=== PATIENT | male | born 1955 | race Asian ===

== ENCOUNTER → 2016-11-26 | Outpatient (CLI) | payer BC ==
[~2016-11-26] MED LIST: DILA100C PO; FLUT50SP EACH NARE; HYDR-3535 PO; LATA0.002 EACH EYE; METO25TA3 PO
== END ==
LOC: CPRE 11:43
PROVIDERS: ATTEND Neurological Surgery
DX: M12.88 Other specific arthropathies, not elsewhere classified, other specified site (principal); M51.16 Intervertebral disc disorders with radiculopathy, lumbar region; M51.36 Other intervertebral disc degeneration, lumbar region

== ENCOUNTER → 2016-12-01 | Day surgery (SDC) | payer BC ==
--- NOTE | 2016-11-30 11:09 | MH ---
cc: DALILA COTA M.D., ROHIT K. M.D. OSSI, RAID G. MD DATE OF ADMISSION: 12/01/2016 ADMISSION DIAGNOSIS Herniated nucleus pulposus lumbar spine. HISTORY OF PRESENT ILLNESS This is a 61-year-old male who presented to us for an evaluation of low back pain which has been ongoing for the past two years. He has been experiencing muscle spasms in his buttocks to the calf after walking only a short distance. His pain is in the left leg mainly and at times he also experiences numbness in the dorsal aspect of the left big toe. He either sits or bends down for relief of the pain. He has had a nerve conduction study done with Dr. Capps on 08/04/2016 consistent with a left L5 and possibly right S1 radiculopathy. He relates that whenever he leans forward on a grocery cart his pain improves but otherwise he cannot walk more than 100 feet. He has undergone chiropractic treatment for the past year along with spinal stabilization and muscle strengthening exercises which he performs on a regular basis. He also has been taking pain and nerve medications but none of these medications are helping with his symptoms. 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 PAST MEDICAL HISTORY: Significant for - 1. Hypertension. 2. Glaucoma. PAST SURGICAL HISTORY: Significant for - 1. Cataract surgery in July 2014. 2. Left eye retinal surgery in 2013 also. CURRENT MEDICATIONS 1. Metoprolol 25 mg daily. 2. Latanoprost 0.005% daily. ALLERGIES TO MEDICATIONS He has no known drug allergies. FAMILY HISTORY He has a sister who is alive at 83 and a brother who is alive at 72. SOCIAL HISTORY He is self-employed. He is . He does not have children. He does not smoke and has not smoked in the past. He does not drink alcohol. REVIEW OF SYSTEMS Constitutional: He denies any fever or chills. Ears, nose and throat: No pharyngitis, exudates or bloody drainage from his nose. Cardiovascular: Denies any chest pain or palpitations. Respiratory: No cough or shortness of breath. Genitourinary: No dysuria or hematuria. Musculoskeletal: Positive for low back pain. Skin: No rashes or pruritus. Neurologic: No difficulty with speech or memory. Gastrointestinal: No nausea or vomiting or abdominal pain. Psychiatric: No anxiety or depression symptoms. Endocrine: No polyuria or polydipsia. Hematologic: No bruising or bleeding tendencies. PHYSICAL EXAMINATION HEAD: Normocephalic, atraumatic. NECK: Supple. No carotid bruits heard on auscultation. LUNGS: Clear to auscultation bilaterally. HEART: Normal sinus rhythm; no murmurs. ABDOMEN: Soft, nontender. Positive bowel sounds. SKIN: No cyanosis or erythema. MUSCULOSKELETAL: He has 5/5 strength in the lower extremities, normal state of balance as well as gait. NEUROLOGIC: He is awake, alert and oriented. Cranial nerves II through XII appear grossly intact. His speech is fluent and comprehension is good. Sensation is intact in the lower extremities. Reflexes in the lower extremities are 2+. DATA REVIEWED Reviewed an MRI of the lumbar spine from September 03, 2016, which reveals significant central L4/L5 disc herniation along with facet arthropathy with moderate to severe spinal stenosis. There is also moderate degenerative disk disease with disk height collapse and endplate changes. There is a lesser degree of degenerative changes at other levels. IMPRESSION 61-year-old male with a chronic history of low back pain, more significant general claudication symptoms affecting mainly the left side. He has undergone chiropractic treatments which also included physical therapy without much relief in the past year. He has a large L4/L5 central disk herniation with associated spinal stenosis along with degenerative disk disease. PLAN We have discussed the treatment options with the patient which include continued conservative treatment measures with pain management versus a L4/L5 microdiskectomy. We have discussed the procedure as well as the risks, benefits, alternatives and recovery time in great detail with the patient. We have discussed the procedure using spine models in the office. We have discussed the risks along with surgery including but not limited to bleeding, infection, muscle weakness, voice hoarseness, disk re-herniation among others. The patient states that he understands the procedure as well as the risks involved and is requesting that we proceed and he was therefore scheduled accordingly. Dictated by: Juni Christensen PA-C MD GUILLERMO Bourgeois/VIPUL /10:25 AM /10:55 AM
[~2016-12-01] VITALS: Ht 170.2 cm; Wt 76.6 kg
[~2016-12-01] MED LIST changes: +ACETAMINOPHEN 1000 MG/100 ML VIAL IV ONE; +BUPIVACAINE/EPINEPHRINE 0.25% 50 ML VIAL INFIL ONE; +DEXAMETHASONE SOD PHOS 4 MG/ML VIAL ONE; -DILA100C PO; +DO NOT ADM ANY ANTICOAGULANT DRUGS XX PRN; +FAMOTIDINE 20 MG/2 ML VIAL ONE; +GELFOAM SIZE 100 ONE; +INSULIN HUMAN REGULAR 1,000 UNITS/10 ML VIAL SQ PRN; +LACTATED RINGER'S 1000 ML INJ 1,000 ML IV ONE; +LACTATED RINGER'S 1000 ML IV SCH; +METOPROLOL TARTRATE 25 MG TAB PO PRN; +MIDAZOLAM HCL 2 MG/2 ML VIAL ONE; +ONDANSETRON HCL 4 MG/2 ML VIAL IV PUSH ONE; +PROPOFOL 200 MG/20 ML AMP IV ONE; +SODIUM CHLOR 0.9% 1000 ML INJ 1,000 ML IV SCH; +SODIUM CHLORID 0.9% 500 ML IV SCH; +THROMBIN (TOPICAL) 5,000 UNIT VIAL ONE; +VANCOMYCIN HCL 1000 MG ON-CALL/NS 250 ML IV SCH; +VANCOMYCIN HCL 1000 MG VIAL ONE; +ePHEDrine/NS 50 MG/5 ML SYR IV ONE; +fentaNYL CITRATE 250 MCG/5 ML AMP ONE; +methylPREDNISolone ACETATE 40 MG/ML VIAL ONE
[2016-12-01 07:37] VITALS: BP 140/88; PULSE 65; RESP 16; TEMP 98.1; O2SAT 99
--- NOTE | 2016-12-01 12:24 | PD.OP ---
MD Mary Haddad MD Operative Report Date of Surgery: Dec 01, 2016 Preoperative Diagnosis: Low back pain with neurogenic claudication; severe L4-5 spinal stenosis from a central disc herniation and facet/ligamentum flavum hypertrophy Postoperative Diagnosis: Same Procedure: Lumbar L4-5 decompressive laminotomy with medial facetectomy and microdiscectomy Anesthesia: Gen. endotracheal by Onel Velasco Surgeon: Christiano Michaels M.D. Virtual Office Assistant(s): Anais Garcia Operation and Findings: Following administration of general endotracheal anesthesia, patient received vancomycin 1 g intravenously. Sequential compression devices were placed for DVT prophylaxis. He was then turned in prone position on Chai frame and the Kyrie table and all pressure points adequately padded. The lumbar region was then shaved and prepped with a Betadine and ChloraPrep. Sterile draping undertaken with Ioban. Midline incision overlying the L4-5 level was then made after infiltrating the skin with 0.25% Marcaine with epinephrine solution. The skin incision was made extending down through the fascia and then using the subperiosteal plane on the left side the muscular attachments to the spinous process and lamina were detached. Intraoperative fluoroscopy was used for level confirmation and further dissection undertaken using microtechnique with microscope magnification. The inferior portion of the L4 and superior portion of the L5 lamina were then drilled out and the underlying ligamentum flavum also removed. There was facet arthropathy noted and the medial portion of facet was also resected and the lateral recess decompressed. Epidural venous stasis which he with the bipolar cautery along with Gelfoam and thrombin and bone wax used at the laminotomy edges for hemostasis. The thecal sac was then gently retracted with a nerve root retractor and an extruded disc fragment was identified. Fragments were removed with pituitary forceps and the nerve root impingement along with thecal sac compression decompressed. The area was then copiously irrigated with vancomycin solution. The retractors removed and the muscle fascia proximal using 2-0 Vicryl interrupted stitches. 3-0 Vicryl subcuticular stitches were also placed in an interrupted fashion and planned skin closure was with Mastisol and Steri-Strips. A sterile dressing was then applied and the patient then turned in the supine position and extubated and taken to recovery room in stable condition. There were no intraoperative complications and all sponge and needle count was correct at the end of the procedure. Estimated blood loss about 20ml. Christiano Michaels MD Dec 01, 2016 12:24
[2016-12-01 13:40] VITALS: BP 135/86; PULSE 62; RESP 16; TEMP 97.3; O2SAT 98
--- NOTE | 2016-12-01 14:29 | RADRPT ---
EXAM DATE/TIME: 12/01/2016 10:42 [facility] COMPARISON: No previous studies available for comparison. INDICATIONS : Level Localization L4,L5. MEDICAL HISTORY : None. SURGICAL HISTORY : None. ENCOUNTER: Initial ACUITY: 1 day PAIN SCORE: Non-responsive. LOCATION: Lumbar spine. FINDINGS: FINDINGS: Single lateral view of the spine demonstrates the spine to be in anatomic alignment. A probe is in pl jose roberto at the L5 level. CONCLUSION: 1. Postsurgical changes as above. Louis Sotomayor MD on December 01, 2016 at 14:27 Board Certified Radiologist. This report was verified electronically.
== END | disposition home or self-care (01) ==
LOC: HSDC 05:16
PROVIDERS: ATTEND Neurological Surgery
DX: M51.16 Intervertebral disc disorders with radiculopathy, lumbar region (principal); M48.06 Spinal stenosis, lumbar region; M12.88 Other specific arthropathies, not elsewhere classified, other specified site; I10 Essential (primary) hypertension; Z87.891 Personal history of nicotine dependence
CPT/HCPCS: 00630; 63030; 72020; 76000; J0131; J1030; J1100; J2250; J2405; J3010; J3370; J7050; J7120